=== PATIENT | female | born 1995 | race Caucasian/White ===

== ENCOUNTER 2022-07-24 08:04 | Outpatient (CLI) | payer BC, SELFPAY ==
[2022-07-24 18:26] LABS: Basophils Absolute Auto 0.1 K/mm3 (0.0-0.1); Basophils Percent Auto 0.7 % (0.2-1.2); Eosinophils Absolute Auto 0.3 K/mm3 (0-0.3); Eosinophils Percent Auto 2.6 % (0-4.4); Hematocrit 40.6 % (37.0-47.0); Hemoglobin 12.8 g/dL (12.0-15.0); Immature Granulocyte Absolute 0.03 K/mm3 (0.00-0.031); Immature Granulocyte Percent A 0.3 % (0-0.5); Lymphocytes Absolute Auto 2.74 K/mm3 (0.9-3.2); Lymphocytes Percent Auto 28.5 % (18.3-44.2); Mean Corpuscular HGB Conc 31.5 g/dl (32-36); Mean Corpuscular Hemoglobin 27.5 pg (26-34); Mean Corpuscular Volume 87.1 fl (80-100); Mean Platelet Volume 9.6 fl (7.4-10.4); Monocytes Absolute Auto 0.7 K/mm3 (0.1-0.6); Monocytes Percent Auto 7.1 % (2.6-8.5); Neutrophils Absolute Auto 5.9 K/mm3 (1.3-6.7); Neutrophils Percent Auto 60.8 % (45.5-73.1); Platelet Count Result 357 k/mm3 (150-375); Red Blood Count 4.66 M/mm3 (4.2-5.4); Red Cell Distribution Width 14.1 % (11.5-14.5); White Blood Count 9.6 K/mm3 (4.5-10.0)
[2022-07-24 19:20] LABS: Alanine Aminotransferase 22 U/L (6-35); Alkaline Phosphatase 101 U/L (38-126); Anion Gap 10 mmol/L (8-16); Aspartate Amino Transferase 37 U/L (14-36); Bilirubin,Total 0.3 mg/dL (0.2-1.3); Blood Urea Nitrogen 14 mg/dL (7-17); Calcium 8.7 mg/dL (8.4-10.2); Carbon Dioxide 25 mmol/L (22-30); Chloride 103 mmol/L (98-107); Cholesterol 184 mg/dL (0-200); Estimated Glomerular Filt Rate > 60; Glucose 77 mg/dL (65-110); HDL Direct 64 mg/dL; Sodium 138 mmol/L (137-145); Triglycerides 120 mg/dL (<150)
[2022-07-24 19:32] LABS: LDL Cholesterol Direct 102 mg/dL
== END 2022-07-24 08:05 | disposition home or self-care (01) ==
LOC: ANHGOSHLAB 08:06
PROVIDERS: PCP Family Medicine; Visit Provider Family Medicine
DX: Z00.00 Encounter for general adult medical examination without abnormal findings (principal)
CPT/HCPCS: 36415; 80053; 80061; 84443; 85025

== ENCOUNTER 2023-07-24 07:56 | Outpatient (CLI) | payer BC, SELFPAY ==
[2023-07-24 19:08] LABS: Alanine Aminotransferase 20 U/L (6-35); Albumin Level 4.4 g/dL (3.5-5.1); Alkaline Phosphatase 94 U/L (38-126); Anion Gap 9 mmol/L (4-12); Aspartate Amino Transferase 31 U/L (14-36); Bilirubin,Total 0.4 mg/dL (0.2-1.3); Blood Urea Nitrogen 20 mg/dL (7-17); Calcium 9.4 mg/dL (8.4-10.2); Carbon Dioxide 26 mmol/L (22-30); Chloride 105 mmol/L (98-107); Cholesterol 211 mg/dL (0-200); Estimated Glomerular Filt Rate > 60; Glucose 84 mg/dL (65-110); HDL Direct 69 mg/dL; Sodium 140 mmol/L (137-145); Triglycerides 165 mg/dL (<150)
[2023-07-24 19:22] LABS: LDL Cholesterol Direct 118 mg/dL
[2023-07-26 17:42] LABS: Almond (F20) IgE <0.10 kU/L; Cashew Nut (F202) IgE <0.10 kU/L; Cashew Nut (F202) IgE Class 0; Codfish (F3) IgE <0.10 kU/L; Codfish (F3) IgE Class 0; Cow's Milk (F2) IgE <0.10 kU/L; Cow's Milk (F2) IgE Class 0; Egg White (F1) IgE <0.10 kU/L; Egg White (F1) IgE Class 0; Hazelnut (F17) IgE <0.10 kU/L; Hazelnut (F17) IgE Class 0; Peanut (F13) IgE <0.10 kU/L; Peanut (F13) IgE Class 0; Salmon (F41) IgE <0.10 kU/L; Salmon (F41) IgE Class 0; Scallop (F338) IgE <0.10 kU/L; Scallop (F338) IgE Class 0; Sesame Seed <0.10 kU/L; Shrimp (F24) IgE <0.10 kU/L; Soybean (F14) IgE <0.10 kU/L; Soybean (F14) IgE Class 0; Tuna (F40) <0.10 kU/L; Tuna (F40) Class 0; Walnut (F256) IgE <0.10 kU/L; Walnut (F256) IgE Class 0; Wheat (F4) IgE <0.10 kU/L; Wheat (F4) IgE Class 0
== END 2023-07-24 07:57 | disposition home or self-care (01) ==
LOC: ANHGOSHLAB 07:57
PROVIDERS: PCP Family Medicine; Visit Provider Family Medicine
DX: Z00.00 Encounter for general adult medical examination without abnormal findings (principal)
CPT/HCPCS: 36415; 80053; 80061; 86003

== ENCOUNTER 2024-08-05 14:24 | Outpatient (CLI) | payer OTHER, SELFPAY ==
--- OUTSIDE RECORDS SUMMARY | 2024-08-05 14:30 | XMS_ITS | Clinical Summary ---
Author Organization [address] Address [address] [place] [id number] Care Team Providers Care Nurse Navigator Name Role Phone Unknown, Notinfile Primary Care Provider Unavail able Social History Tobacco Use Types Packs/Day Years Used Date Smoking Tobacco: Never Assessed Personal Safety Answer Date Recorded Getting School Help Needed Not on file 05/19 Comments Unknown Sex and Gender Information Value Date Recorded Sex Assigned at Not on file Legal Sex Female 7:58 AM CDT Gender Identity Female 09/02/2021 3:08 PM CDT Sexual Orientation Not on file Plan of Treatment Health Maintenance Due Date Last Done Comments Cervical Cancer Screening 1996 Depression Screening 1996 Hepatitis C Screening 1996 Regular Well Visit/Exam 18-64 2014 Covid-19 Vaccine ( season) 2023 02/22/2021, 05/22/2020 Influenza Vaccine (Season Ended) 2024 02/22/2021, 01/30/2020, 12/14/2000 DTaP/Tdap/Td Vaccine (8 - Td or Tdap) 07/07/2026 07/07/2016, 09/24/2006, 08/15/2001, Additional history exists Hepatitis B Screening Completed 06/10/1997 , 1996, 1996 Varicella Vaccines Completed 05/04/2008, 12/07/1997 HPV Vaccines Completed 04/12/2010, 11/04, 09/28/2009 Pneumococcal vaccine <65 Aged Out No longer eligible based on patient's age to complete this topic Insurance [facility] OOS Care Teams Nurse Navigator Relationship Specialty Start Date End Date Unknown, Notinfile PCP - General 09/02/21
--- OUTSIDE RECORDS SUMMARY | 2024-08-05 14:30 | XMS_ITS | Encounter Summary ---
Author Organization [facility] Health Address [address] [place] [address] Care Team Providers Care Bridal Gown Fitter Name Role Phone Tabatha Esqueda MD Primary Care Provider [phone] Charlene Cuellar MD Primary Care Provider [phone] Charlene Cuellar MD Primary Care Provider [phone] Encounter Details Date Type Department Care Team (Late st Contact Info) Description 07/10/2011 [facility] Outpatient Visit [facility] [address] [place] [address] Tabatha Esqueda MD [address] [place] [phone] Social History Tobacco Use Types Packs/Day Years Used Date Smoking Tobacco: Never Assessed Comments Unknown Sex and Gender Information Value Date Recorded Sex Assigned at Not on file 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
--- OUTSIDE RECORDS SUMMARY | 2024-08-05 14:30 | XMS_ITS | Referral Summary ---
Author Organization [facility] [address] Address [address] [place] [id number] Care Team Providers Care Panel Installer Name Role Phone Unknown, Notinfjaqueline Primary Care Provider Unavail able Social History [...] Orientation Not on file Plan of Treatment [place] [address] [place] [address] Care Teams Panel Installer Relationship Specialty Start Date End Date Unknown, Nolan PCP - General 09/02/21
--- OUTSIDE RECORDS SUMMARY | 2024-08-05 14:30 | XMS_ITS | Clinical Summary ---
Author Organization [facility] Address [address] [place] [address] Care Team Providers Care Metal Weather Stripper Name Role Phone Unavailable Primary Care Provider Unavailabl e Source Comments [facility],non-owned Affiliates and Associated Physician Practices is amultiple site organization consisting of ambulatory clinics and hospital sitesin [place], [place], [place]. This disclosure is being madepursuant to the Care Everywhere program and may not contain all information available regarding this patient. Last updated 17.[facility] Allergies No known active allergies Medications * Be aware that medications may not be up to date on this document. Alwaysverify current medications with the patient. adapalene (DIFFERIN) 0.1 % gel Apply to affected area at bedtime. 45 g 2 0 Active Additional Information Patient not taking.Reported on 02/11/2016 amoxicillin-cla vulanate (AUGMENTIN) 875-125 MG tablet Take 1 Tab by mouth 2 times daily with morning and evening meal. 20 Tab 0 5 Active Additional Information Patient not taking.Reported on 02/11/2016 fluticasone propionate (FLONASE) 50 MCG/ACT nasal spray Lorraine 1 Lorraine into each nostril 2 times daily. 1 Bottle 3 5 Active Additional Information Patient not taking.Reported on 02/11/2016 MONONESSA 0.25-35 MG-MCG tablet TK 1 T D FOR 21 DAYS OF ACTIVE TS THEN SKIP PLACEBOS AND START THE NEXT PACK 0 7 Active Active Problems Problem Noted Date Diagnosed Date Acne 04/13/2010 BMI (body mass index), pediatric, 95-99% for age 0204/12/2010 Immunizations Immunization Administration Dates Next Due DTaP VACCINE IM (6wk-6yrs) 08/15/2001,,03/24/1997,01/07,1996 HEP A PEDS 2 DOSE 03/28/2007,09/24/2006 HEP B VACCINE, PED/ADOL 06/10/1997,1996, HIB BOOSTER 03/09/1998, 8,01/07/1997,11/06 Human Papilloma Virus María valent Vaccine 04/12/2010,11/29/2009,09/28/2009 INFLUENZA VACCINE 12/14/2000 MENINGOCOCCAL ACWY (MCV4P) VAC IM 09/01/2014, MMR 02/11/2016,08/15/2001,09/14/1997 POLIO IPV 08/15/2001 POLIO OPV 12/07/1997,01/07/1997,1996 PPD 08/15/2001,09/14/1997 TDAP (7yrs+) 07/06/2016,09/24/2006 VARICELLA 05/04/2008,12/07/1997 Social History Tobacco Use Types Packs/Day Years Used Date Smoking Tobacco: Never Smokeless Tobacco: Never Alcohol Use Standard Drinks/Week Comments Not Asked 0 (1 standard drink = 0.6 oz pur e alcohol) Comments No Sex and Gender Information Value Date Recorded Sex Assigned at Not on file Legal Sex Female 5:40 AM 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 Gender Identity Not on file Sexual Orientation Not on file Last Filed Vital Signs Vital Sign Reading Time Taken Comments Blood Pressure 118/73 04/12/2010 3:35 PM 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 Pulse 66 04/12/2010 3:35 PM 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 Temperature 36.8 C (98.2 F) 07/14/2016 9:28 AM CDT Respiratory Rate - - Oxygen Saturation - - Inhaled Oxygen Concentration - - Weight 81.7 kg (180 lb 3.2 oz) 07/14/2016 9:28 A M CDT Height 174.6 cm (5' 8.75) 03/19/2015 10:[address] Body Mass Index 26.8 03/19/2015 10:44 AM 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 Plan of Treatment Health Maintenance Due Date Last Done Comments HIV SCREENING 09/05/2011 HEPATITIS C SCREENING 08/31/2014 COVID-19 VACCINE ( season) 2023 DEPRESSION SCREENING 03/05/2024 INFLUENZA VACCINE (Season Ended) 2024 12/14/2000 DTAP/TDAP/TD VACCINES (8 - Td or Tdap) 07/06/2026 07/06/2016, 09/24/2006, 08/15/2001, Additional history exists ZOSTER VACCINE (1 of 2) 2046 HEPATITIS B VACCINE Completed 06/10/1997, 1996, 1996 HIB VACCINE Completed 03/09/1998, 03/06, 01/07/1997, Additional history exists HPV VACCINE Completed 04/12/2010, 11/04, 09/28/2009 MENINGOCOCCAL GROUPS A/C/Y/W VACCINE Completed 09/01/2014, 09/28/2009 MENINGOCOCCAL (Group B) VACCINE SHARED DECISION-MAKING Aged Out No longer eligible based on patient's age to complete this topic PNEUMOCOCCAL VACCINE Aged Out No long er eligible based on patient's age to complete this topic Goals Goal Patient Goal Type Associated Problems Recent Progress Patient-Stated? Author Use safety retraint in car Lifestyle On track( 016 10:47 AM 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) Vanessa Garcia RN [place] [address] [employer]
--- OUTSIDE RECORDS SUMMARY | 2024-08-05 14:30 | XMS_ITS | Encounter Summary ---
Author Organization [facility] Health Address [address] [place] [address] Care Team Providers Care Collar Worker Name Role Phone Tabatha Esqueda MD Primary Care Provider [phone] Charlene Cuellar MD Primary Care Provider [phone] Charlene Cuellar MD Primary Care Provider [phone] Encounter Details Date Type Department Care Team (Late st Contact Info) Description 08/02/2011 [facility] Outpatient Visit 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
[2024-08-05 20:04] LABS: Influenza A QL RT-PCR Negative (Negative); Influenza B QL RT-PCR Negative (Negative); RSV RNA, RT-PCR Negative (Negative); SARS-CoV-2 RNA PCR Negative (Negative)
== END 2024-08-05 14:25 | disposition home or self-care (01) ==
LOC: ANHGOSHLAB 14:25
PROVIDERS: PCP Family Medicine; Visit Provider Family Medicine
DX: B34.9 Viral infection, unspecified (principal); Z20.822 Contact with and (suspected) exposure to COVID-19
CPT/HCPCS: 87637